=== PATIENT | male | born 1980 | race Two or more races ===

== ENCOUNTER 2024-05-02 09:48 | Outpatient (AMB) | payer MEDICAID, SELFPAY ==
--- NOTE | 2024-05-02 09:50 | A.OFFVIS_ITS ---
Vital Signs 05/02/24 09:55 Height 5 ft 8 in Weight 190 lb BMI 28.9 Intake Visit Reasons: lipoma of right forehead Intake Note: This patient presents for lipoma of right forehead. Pt c/o; recurrent lipoma of forehead, reports pain, discomfort. 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 He has had this for about a year or 2 now. He had a similar lipoma on the same area removed under local anesthesia in 2019. He describes some discomfort in the area and wants this removed again. He denies any skin changes. [facility] Medical History (Updated 05/02/24 @ 10:02 by Dakota Mejia MD) Lipoma of forehead Surgical History (Updated 05/02/24 @ 09:56 by ARPITA Hernandez) S/P excision of lipoma Social History Unable to assess alcohol history related to: Unknown Patient Tobacco Use Status: Tobacco use Unknown Review of Systems Const Denies chills and Denies fever(s) Card Denies chest pain, Denies dyspnea and Denies dyspnea on exertion Resp Denies cough, Denies dyspnea and Denies dyspnea on exertion GI Denies hematochezia and Denies change in bowel habits Denies hematuria and Denies difficulty urinating Musc Denies back pain and Denies limited range of motion Neuro Denies focal weakness and Denies convulsions Psych Denies depression and Denies mood swings Physical Exam Const General: comfortable and no acute distress Orientation/consciousness: patient oriented x3 HEENT Other: Lipomatous mass on the right forehead about 1 cm in diameter, well-defined Neck Neck: Yes no lymphadenopathy Resp Auscultation: clear to auscultation bilaterally Cardio Rhythm: regular rhythm GI Palpation (GI): Soft to palpation, nontender and no guarding Neuro General: patient oriented x3 Assessment & Plan Assessment & Plan (1) Lipoma of forehead: Code(s): D17.0 - Benign lipomatous neoplasm of skin and subcutaneous tissue of head, face and neck Category: Medical Plan I explained to him the technique of excision under local anesthesia. I reviewed the risks including but not limited to bleeding, infections, poor healing, as well as the benefits and alternatives. I also explained to him what to expect postoperatively . He understands and agrees to proceed. This will be scheduled as an office procedure. Coding Level of Care Code New Pt Level 3 (72886) Diagnoses Lipoma of forehead D17.0
[2024-05-02 09:55] VITALS: BMI 28.9
== END 2024-05-02 10:03 | disposition home or self-care (01) ==
PROVIDERS: PCP Internal Medicine; Visit Provider Surgery
DX: D17.0 Benign lipomatous neoplasm of skin and subcutaneous tissue of head, face and neck (principal)
CPT/HCPCS: 99203

== ENCOUNTER → 2024-05-02 09:48 | Outpatient (BNVA) | payer MEDICAID, SELFPAY | PROVIDERS: PCP Internal Medicine; Visit Provider Surgery | DX: D17.0 Benign lipomatous neoplasm of skin and subcutaneous tissue of head, face and neck (principal) | CPT/HCPCS: 99202 ==

== ENCOUNTER 2024-05-16 12:42 | Outpatient (REF) | payer MEDICAID, SELFPAY | END 2024-05-16 12:43 | disposition home or self-care (01) | LOC: HO.LNP 12:42 | PROVIDERS: PCP Internal Medicine; Visit Provider Surgery | DX: D17.0 Benign lipomatous neoplasm of skin and subcutaneous tissue of head, face and neck (principal) | CPT/HCPCS: 21011; 88304 ==

== ENCOUNTER 2024-05-16 12:42 | Outpatient (AMB) | payer MEDICAID, SELFPAY ==
--- NOTE | 2024-05-16 13:00 | MHC.OFFVIS ---
Intake Visit Reasons: excision lipoma of right forehead Intake Note: Office procedure: excision lipoma of right forehead Pt c/o; here for excision, reports no changes since last visit. 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 [facility] Medical History Lipoma of forehead Surgical History S/P excision of lipoma Social History Unable to assess alcohol history related to: Unknown Patient Tobacco Use Status: Tobacco use Unknown Office Procedures Excision Details: He was in prone position. The area of the subcutaneous mass on right forehead was prepped and draped. Lidocaine 1% was used for local anesthesia. I made an incision on the skin overlying the mass using blade 15. This was carried down through the full-thickness of the skin and subcutaneous fat until a mass was visualized. This was in the deep subcutaneous layer. I sharply dissected this off of the rest of the subcutaneous layer with fine scissors until this was delivered and sent as a specimen I closed the incision with full-thickness nylon 5 0 interrupted sutures. Steri-Strips were applied He tolerated procedure well. There were no immediate complications. Estimated blood loss was about 2 cc. [id number] face/ear/eyelid/nose/lip/mucous membrane 0.6cm-1cm Procedure code (CPT) selection complete Assessment & Plan Assessment & Plan (1) Lipoma of forehead: Code(s): D17.0 - Benign lipomatous neoplasm of skin and subcutaneous tissue of head, face and neck Category: Medical Plan: Excision was done in the office under local anesthesia. He tolerated the procedure well. We will follow up on the path report. I will see him next week for removal sutures. He was given wound care instructions. Coding Level of Care Code Procedure Only Diagnoses Lipoma of forehead D17.0 CPT Codes Face/Ear/Eyelid/Nose/Lip/Mucous Membrane - CPT: 88071-[id number] face/ear/eyelid/nose/lip/mucous membrane 0.6cm-1cm ([id number])
== END 2024-05-16 14:06 | disposition home or self-care (01) ==
PROVIDERS: PCP Internal Medicine; Visit Provider Surgery
DX: D17.0 Benign lipomatous neoplasm of skin and subcutaneous tissue of head, face and neck (principal)
CPT/HCPCS: 21011

== ENCOUNTER 2024-05-23 10:13 | Outpatient (AMB) | payer MEDICAID, SELFPAY ==
--- NOTE | 2024-05-23 10:14 | MHC.OFFVIS ---
Intake Visit Reasons: Suture removal Intake Note: This patient presents for suture removal. Pt c/o; reports no complaints. 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 This was done under local anesthesia. He denies current complaints at this time. [facility] Medical History Lipoma of forehead Surgical History S/P excision of lipoma Social History Unable to assess alcohol history related to: Unknown Patient Tobacco Use Status: Tobacco use Unknown Review of Systems Const Denies chills and Denies fever(s) Card Denies chest pain, Denies dyspnea and Denies dyspnea on exertion Resp Denies cough, Denies dyspnea and Denies dyspnea on exertion GI Denies hematochezia and Denies change in bowel habits Denies hematuria and Denies difficulty urinating Musc Denies back pain and Denies limited range of motion Neuro Denies focal weakness and Denies convulsions Psych Denies depression and Denies mood swings Physical Exam Const General: comfortable and no acute distress HEENT Other: Excision site on the forehead is well healed, sutures intact, no signs of infections Assessment & Plan Assessment & Plan (1) Lipoma of forehead: Code(s): D17.0 - Benign lipomatous neoplasm of skin and subcutaneous tissue of head, face and neck Category: Medical Plan: Status post excision. I removed all his sutures. The incision is well healed. His path report shows a lipoma. He understands the benign nature of this pathology. He can follow up on a p.r.n. basis. Coding Level of Care Code Global (90147) Diagnoses Lipoma of forehead D17.0
== END 2024-05-23 10:18 | disposition home or self-care (01) ==
PROVIDERS: PCP Internal Medicine; Visit Provider Surgery
DX: D17.0 Benign lipomatous neoplasm of skin and subcutaneous tissue of head, face and neck (principal)
CPT/HCPCS: 99024

== ENCOUNTER → 2024-05-23 10:13 | Outpatient (BNVA) | payer MEDICAID, SELFPAY | PROVIDERS: PCP Internal Medicine; Visit Provider Surgery | DX: Z48.02 Encounter for removal of sutures (principal); Z87.2 Personal history of diseases of the skin and subcutaneous tissue; Z98.890 Other specified postprocedural states | CPT/HCPCS: 99212 ==